=== PATIENT | male | born 1975 | race Caucasian/White ===

== ENCOUNTER 2019-12-13 18:58 | Emergency (ER) | payer BC ==
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
--- NOTE | 2019-12-13 20:18 | CR ---
Chest: PA and lateral views of the chest were obtained. Comparison: No previous study. Heart size and mediastinum are normal. Lungs are clear with no acute parenchymal change. Mild scoliosis is noted within the spine. No additional bony abnormality is appreciated. Impression: 1. Nothing acute is appreciated on 2 view chest x-ray. Diagnostic code #2 This report was dictated in MDT
== END 2019-12-13 20:05 | disposition home or self-care (01) ==
LOC: JD.ED 18:58
DX: S00.03XA Contusion of scalp, initial encounter (principal); S20.412A Abrasion of left back wall of thorax, initial encounter; W22.8XXA Striking against or struck by other objects, initial encounter
CPT/HCPCS: 71046; 71046-26; 99283; 99283-25